=== PATIENT | female | born 1970 | race American Indian/Alaskan Native ===

== ENCOUNTER 2018-07-22 06:27 | Day surgery (SDC) | payer OTHER ==
[2018-07-22 06:47] VITALS: O2SAT 100
[2018-07-22] MEDS ORDERED: Propofol 10 mg/ml Inj (20 ML) ONE (08:07)
[2018-07-22] MEDS ORDERED: Lactated Ringer's 500 ML IV SCH (08:15)
--- NOTE | 2018-07-22 08:23 | CP.SDSHP ---
Same Day Surgery H & P - History Proposed Procedure: colonoscopy - Previous Medical/Surgical History Previous Surgical History: C section - Allergies Allergies: Allergies No Known Allergies Allergy (Unverified 07/21/18 13:30) - Physical Exam Vital Signs: Vital Signs 07/22/18 06:43 Temperature 98.4 F Pulse Rate 82 Respiratory 18 Rate Blood Pressure 121/72 O2 Sat by Pulse 100 Oximetry - Date & Time Date: 07/22/18 Time: 08:05 Short Stay Discharge - Short Stay Discharge Admitting Diagnosis/Reason for Visit: FAM HX OF MAL JESSENIA OF DIG ORGANS, SCREENING Disposition: HOME/ ROUTINE
[2018-07-22 08:46] VITALS: TEMP 97.1
[2018-07-22 09:15] VITALS: RESP 15
[2018-07-22 09:49] VITALS: BP 124/66; PULSE 60
== END 2018-07-22 09:45 | disposition home or self-care (01) ==
LOC: C.ENDO 06:27
PROVIDERS: ATTEND Colon & Rectal Surgery
DX: Z80.0 Family history of malignant neoplasm of digestive organs (principal); Z12.11 Encounter for screening for malignant neoplasm of colon; D12.0 Benign neoplasm of cecum; K64.8 Other hemorrhoids
CPT/HCPCS: 45380; 84703; 88305; J2001; J2704; J7120